=== PATIENT | female | born 1990 | race Caucasian/White ===

== ENCOUNTER 2021-11-08 21:54 | Emergency (ER) | payer MEDICAID, OTHER ==
[~2021-11-08 21:54] MED LIST: FERR1TAB24 PO; PREN1TAB52
== END 2021-11-08 23:09 | disposition left against medical advice (07) ==
LOC: EMS 21:54
DX: R10.9 Unspecified abdominal pain (principal); Z53.21 Procedure and treatment not carried out due to patient leaving prior to being seen by health care provider